=== PATIENT | female | born 1955 | race Two or more races ===

== ENCOUNTER 2020-05-26 19:56 | Emergency (ER) | payer OTHER ==
[~2020-05-26] VITALS: Ht 165.1 cm; Wt 72.0 kg
[2020-05-26 20:26] VITALS: BP 130/62
[2020-05-26] MEDS ORDERED: HYDROCODONE/ACETAMINOPHEN 5/325MG TABLET PO ONE (23:15)
[2020-05-26] MEDS ORDERED: TETANUS, DIPHTHERIA, PERTUSSIS VAC/PF 0.5ML (>7YR OLD) IM ONE (23:15)
[2020-05-26] MEDS ORDERED: BACITRACIN ZINC OINT UDPKT TOP ONE (23:15)
== END 2020-05-26 23:57 | disposition home or self-care (01) ==
LOC: ER 19:56
DX: S20.211A Contusion of right front wall of thorax, initial encounter (principal); V49.59XA Passenger injured in collision with other motor vehicles in traffic accident, initial encounter; Y93.89 Activity, other specified; Y92.89 Other specified places as the place of occurrence of the external cause; Y99.8 Other external cause status; E78.00 Pure hypercholesterolemia, unspecified
CPT/HCPCS: 71045; 90471; 90715; 99283